=== PATIENT | female | born 1945 | race Caucasian/White ===

== ENCOUNTER 2017-08-06 07:40 | Outpatient (CLI) | payer MEDICARE, OTHER ==
[2017-08-06 09:41] LABS: eGFR (African) > 60; eGFR (Non-African) > 60
== END 2017-08-06 07:42 ==
LOC: LAB 07:40
PROVIDERS: ATTEND Family Medicine
DX: E78.2 Mixed hyperlipidemia (principal)
CPT/HCPCS: 36415; 80053; 80061

== ENCOUNTER 2019-05-21 16:39 | Outpatient (CLI) | payer MEDICARE, OTHER | END 2019-05-21 16:41 | LOC: LABRHC 16:39 | PROVIDERS: ATTEND Family Medicine | DX: Z13.89 Encounter for screening for other disorder (principal) | CPT/HCPCS: 87086 ==

== ENCOUNTER 2019-08-20 08:52 | Outpatient (CLI) | payer MEDICARE, OTHER ==
[2019-08-28 10:27] LABS: BASOPHILS % 0.4 % (0.0-1.5); HDL 78 mg/dL (>40); NEUTROPHILS # 3.7 # k/uL (1.4-7.7); eGFR (Non-African) > 60
== END 2019-08-20 08:59 | disposition home or self-care (01) ==
LOC: RT 08:52
PROVIDERS: ATTEND Family Medicine
DX: E78.5 Hyperlipidemia, unspecified (principal); R42 Dizziness and giddiness
CPT/HCPCS: 36415; 80053; 80061; 85025; 93005